=== PATIENT | female | born 1960 ===

== ENCOUNTER 2017-08-06 07:26 | Day surgery (SDC) | payer BC, OTHER ==
[2017-08-02 18:59] VITALS: BMI 25.0
--- NOTE | 2017-08-06 09:08 | HP ---
History & Physical Update - History Currently as noted:: Uterine polyp - Assessment Currently as noted:: 56yo female with uterine polyp - Plan Plan: No Change Currently as noted:: Hysteroscopy, polypectomy, D&C.
[2017-08-06] MEDS ORDERED: MIDAZOLAM HCL 2 MG/2 ML SINGLE DOSE VIAL ONE (09:55)
[2017-08-06] MEDS ORDERED: LIDOCAINE HCL/PF 2% SDV 5ML VIAL ONE (09:59)
[2017-08-06] MEDS ORDERED: DEXAMETHASONE SOD PHOSPHATE 4 MG/1 ML VIAL ONE (09:59)
[2017-08-06] MEDS ORDERED: PROPOFOL 20 ML ONE (10:04)
[2017-08-06] MEDS ORDERED: oxyCODONE HCL 5 MG TABLET PO PRN (10:25)
[2017-08-06] MEDS ORDERED: ONDANSETRON 4 MG/2 ML VIAL IVPUSH PRN (10:25)
--- NOTE | 2017-08-06 11:32 | OP ---
Operative Note - Note: Operative Date: 08/06/17 Pre-Operative Diagnosis: Uterine polyps Operation: Hysteroscopy, Excision of polyps Findings: Multiple uterine polyps and a submucosal pedunculated myoma were noted. A Truclear device was used to remove 4-5 polyps. A Trueclear device could not excise the submucosal myoma. The cervix was dilated to accommodate size 27 Coates dilator. A polyp forceps were used to attempt to remove the protruding myoma. The forcept was introduced gently. However, once the forcep was removed it was noted that the removed specimen looked like fat. A perforation of the uterus was suspected. A hysteroscope was placed back inside the uterus and an entire uterine cavity was surveyed. Despite several surveys and re-introducing the hysteroscope into the uterus 4-5 times, no defect in the uterine cavity was noted. This was done in order to decide if an explorative laparoscopy/ laparotomy was needed. Since no defect was seen, the decision was made to terminate the surgery. The plan is to admit pt for observation, serial labs, possible CT scan, possible explorative surgery. Post-Operative Diagnosis: Other (Endometrial polyps, submicaosal fibroids) Surgeon: Russ Pascal Anesthesiologist/CUSTODIAL MAINTENANCE WORKER: Guillermo Abraham Anesthesia: General Specimens Removed: Uterine polyps, suspected ?? small fragment of fat Estimated Blood Loss (mls): 10 Drains, Volume Out (mls): 0 Blood Volume Replaced (mls): 0 Fluid Volume Replaced (mls): 800 (Hysteroscopy fluid deficit 2500 ml) Operative Report Dictated: Yes
[2017-08-06 12:24] LABS: HEMATOCRIT 39.8 % (32.4-45.2); HEMOGLOBIN 12.9 GM/dL (10.7-15.3); MCH 26.9 pg (25.7-33.7); MCHC 32.3 g/dl (32.0-36.0); MEAN CELL VOLUME 83.3 fl (80-96); MEAN PLT VOLUME 9.3 fl (7.5-11.1); PLATELET COUNT 340 K/MM3 (134-434); RBC 4.78 M/mm3 (3.60-5.2); RDW 13.4 % (11.6-15.6); WHITE BLOOD COUNT 5.3 K/mm3 (4.0-10.0)
[2017-08-06 12:55] LABS: ALBUMIN 3.5 g/dl (3.4-5.0); ANION GAP 10 (8-16); BILIRUBIN,TOTAL 0.3 mg/dL (0.2-1.0); BLOOD UREA NITROGEN 18 mg/dL (7-18); CALCIUM 8.2 mg/dL (8.5-10.1); CHLORIDE 106 mmol/L (98-107); CO2 25 mmol/L (21-32); CREATININE 0.7 mg/dL (0.55-1.02); GLUCOSE,RANDOM 80 mg/dL (74-106); POTASSIUM 4.2 mmol/L (3.5-5.1); SGOT/AST 10 U/L (15-37); SGPT/ALT 18 U/L (12-78); SODIUM 141 mmol/L (136-145); TOT PROT 6.9 g/dl (6.4-8.2)
[2017-08-06 12:56] LABS: ALK PHOS 88 U/L (45-117)
[2017-08-06 16:21] LABS: ALBUMIN 3.8 g/dl (3.4-5.0); ANION GAP 8 (8-16); BLOOD UREA NITROGEN 19 mg/dL (7-18); CALCIUM 8.4 mg/dL (8.5-10.1); CHLORIDE 108 mmol/L (98-107); CO2 25 mmol/L (21-32); CREATININE 0.7 mg/dL (0.55-1.02); GLUCOSE,RANDOM 90 mg/dL (74-106); SGOT/AST 11 U/L (15-37); SGPT/ALT 19 U/L (12-78); SODIUM 141 mmol/L (136-145)
[2017-08-06 16:24] LABS: ALK PHOS 93 U/L (45-117); BILIRUBIN,TOTAL 0.3 mg/dL (0.2-1.0); TOT PROT 7.4 g/dl (6.4-8.2)
[2017-08-06 16:27] LABS: BASO % 0.2 % (0-2.0); EOS % 0.1 % (0-4.5); HEMATOCRIT 36.8 % (32.4-45.2); LYMPH % 8.4 % (8-40); MCH 27.1 pg (25.7-33.7); MCHC 32.8 g/dl (32.0-36.0); MEAN CELL VOLUME 82.7 fl (80-96); MEAN PLT VOLUME 9.2 fl (7.5-11.1); MONO % 1.7 % (3.8-10.2); NEUT % 89.6 % (42.8-82.8); PLATELET COUNT 361 K/MM3 (134-434); RBC 4.45 M/mm3 (3.60-5.2); RDW 13.1 % (11.6-15.6); WHITE BLOOD COUNT 6.8 K/mm3 (4.0-10.0)
[2017-08-06] MEDS ORDERED: CEFAZOLIN 1 GM in DEXTROSE 5%-WATER - 50 ML IVPB SCH (18:15)
[2017-08-06] MEDS ORDERED: ceFAZolin SODIUM 1 GM VIAL ONE (18:57)
[2017-08-06] MEDS ORDERED: DEXTROSE 5%-WATER - 50 ML IVPB ONE (18:57)
[2017-08-06] MEDS: LACTATED RINGERS SOLUTION 1,000 ML IV SCH (19:01)
[2017-08-06] MEDS: CEFAZOLIN 1 GM in DEXTROSE 5%-WATER - 50 ML IVPB SCH (19:02)
--- NOTE | 2017-08-06 20:23 | PN ---
Progress Note (SOAP) - Subjective Chief Complaint: Pt w/o complaints. No pain, no nausea or vomiting. No fever or chills. She is hungry and wants to eat. History of Present Illness: s/p hysteroscopy, D&C with suspected perforation and admitted for observation. - Current Medications Current Medications: Active Medications Fentanyl (Sublimaze Injection -) 50 mcg IVPUSH [id number] PRN PRN Reason: PAIN-PACU ORDER X 4 DOSES ONLY Last Admin: 08/06/17 12:00 Dose: 50 mcg Lactated Ringer's (Lactated Ringers Solution) 1,000 mls @ 75 mls/hr IV ASDIR [facility] Last Admin: 08/06/17 19:01 Dose: 75 mls/hr Metronidazole (Flagyl 500mg Premixed Ivpb -) 500 mg in 100 mls @ 100 mls/hr IVPB Q6H-IV AISHA Stop: 08/07/17 18:14 Last Admin: 08/06/17 19:42 Dose: 100 mls/hr Cefazolin Sodium 1 gm/ (Dextrose) 50 mls @ 100 mls/hr IVPB Q8H-IV [facility] Stop: 08/07/17 18:14 Last Admin: 08/06/17 19:02 Dose: 100 mls/hr Ondansetron HCl (Zofran Injection) 4 mg IVPUSH Q6H PRN PRN Reason: NAUSEA AND/OR VOMITING Oxycodone HCl (Roxicodone -) 5 mg PO Q4H PRN PRN Reason: PAIN LEVEL 1-5 - Objective Vital Signs: Vital Signs Temperature 98.3 F 08/06/17 18:35 Pulse Rate 73 08/06/17 18:35 Respiratory Rate 20 08/06/17 18:35 Blood Pressure 156/89 08/06/17 18:35 O2 Sat by Pulse Oximetry (%) 97 08/06/17 18:35 Constitutional: Yes: Well Nourished, No Distress, Calm Eyes: Yes: WNL, Conjunctiva Clear, EOM Intact HENT: Yes: WNL, Atraumatic, Normocephalic Neck: Yes: WNL, Supple, Trachea Midline Cardiovascular: Yes: WNL, Regular Rate and Rhythm Respiratory: Yes: WNL, Regular, CTA Bilaterally Gastrointestinal: Yes: WNL, Normal Bowel Sounds, Soft, Other (non-tender, no rebound, no guarding/rigidity) Genitourinary: Yes: WNL (no vag bleeding) Musculoskeletal: Yes: WNL Extremities: Yes: WNL Peripheral Pulses WNL: Yes Edema: No Integumentary: Yes: WNL Neurological: Yes: WNL, Alert, Oriented ...Motor Strength: Yes: WNL Psychiatric: Yes: WNL, Alert, Oriented Labs Lab Results: CBC, BMP 08/06/17 14:20 08/06/17 14:20 Assessment/Plan 56yo female s/p hysteroscopy, D&C, complicated by suspected uterine perforation. The pt is doing well, stable. There are no s/sx's of acute abdomen or sepsis. Plan to continue to monitor and labs. Continue NPO for now.
[2017-08-07] MEDS ORDERED: ceFAZolin SODIUM 1 GM VIAL ONE ×2 (01:43→09:30)
[2017-08-07] MEDS ORDERED: PT OWN MED DRAWER 7, Y5N ONE (01:43)
[2017-08-07] MEDS ORDERED: DEXTROSE 5%-WATER - 50 ML IVPB ONE ×2 (01:45→09:30)
[2017-08-07] MEDS: CEFAZOLIN 1 GM in DEXTROSE 5%-WATER - 50 ML IVPB SCH ×2 (01:48→09:36)
[2017-08-07 07:44] LABS: BASO % 0.4 % (0-2.0); EOS % 0.6 % (0-4.5); HEMATOCRIT 35.1 % (32.4-45.2); HEMOGLOBIN 11.8 GM/dL (10.7-15.3); LYMPH % 25.8 % (8-40); MCH 27.5 pg (25.7-33.7); MCHC 33.6 g/dl (32.0-36.0); MEAN PLT VOLUME 8.9 fl (7.5-11.1); MONO % 8.5 % (3.8-10.2); NEUT % 64.7 % (42.8-82.8); PLATELET COUNT 340 K/MM3 (134-434); RBC 4.29 M/mm3 (3.60-5.2); RDW 13.2 % (11.6-15.6); WHITE BLOOD COUNT 6.6 K/mm3 (4.0-10.0)
[2017-08-07 08:18] LABS: ALBUMIN 3.4 g/dl (3.4-5.0); ANION GAP 7 (8-16); BLOOD UREA NITROGEN 16 mg/dL (7-18); CALCIUM 8.3 mg/dL (8.5-10.1); CHLORIDE 108 mmol/L (98-107); CO2 28 mmol/L (21-32); GLUCOSE,RANDOM 81 mg/dL (74-106); POTASSIUM 4.3 mmol/L (3.5-5.1); SODIUM 143 mmol/L (136-145)
[2017-08-07 08:23] LABS: ALK PHOS 85 U/L (45-117); BILIRUBIN,TOTAL 0.6 mg/dL (0.2-1.0); CREATININE 0.9 mg/dL (0.55-1.02); SGOT/AST 11 U/L (15-37); SGPT/ALT 15 U/L (12-78); TOT PROT 6.8 g/dl (6.4-8.2)
[2017-08-07] MEDS: LACTATED RINGERS SOLUTION 1,000 ML IV SCH (09:37)
--- NOTE | 2017-08-07 09:38 | PN ---
Progress Note (SOAP) - Subjective Chief Complaint: Pt w/o complaints. No pain, no nausea or vomiting, no anorexia. No fever or chills. She is looking forward to being discharged. History of Present Illness: POD #1, s/p hysteroscopy, D&C with suspected perforation and admitted for observation. - Current Medications Current Medications: Active Medications Fentanyl (Sublimaze Injection -) 50 mcg IVPUSH [id number] PRN PRN Reason: PAIN-PACU ORDER X 4 DOSES ONLY Last Admin: 08/06/17 12:00 Dose: 50 mcg Lactated Ringer's (Lactated Ringers Solution) 1,000 mls @ 75 mls/hr IV ASDIR AISHA Last Admin: 08/06/17 19:01 Dose: 75 mls/hr Metronidazole (Flagyl 500mg Premixed Ivpb -) 500 mg in 100 mls @ 100 mls/hr IVPB Q6H-IV AISHA Stop: 08/07/17 18:14 Last Admin: 08/07/17 02:01 Dose: 100 mls/hr Cefazolin Sodium 1 gm/ (Dextrose) 50 mls @ 100 mls/hr IVPB Q8H-IV AISHA Stop: 08/07/17 18:14 Last Admin: 08/07/17 01:48 Dose: 100 mls/hr Ondansetron HCl (Zofran Injection) 4 mg IVPUSH Q6H PRN PRN Reason: NAUSEA AND/OR VOMITING Oxycodone HCl (Roxicodone -) 5 mg PO Q4H PRN PRN Reason: PAIN LEVEL 1-5 - Objective Vital Signs: Vital Signs Temperature 98.4 F 08/07/17 05:35 Pulse Rate 71 08/07/17 05:35 Respiratory Rate 20 08/07/17 05:35 Blood Pressure 143/90 08/07/17 05:35 O2 Sat by Pulse Oximetry (%) 97 08/06/17 18:35 Constitutional: Yes: Well Nourished, No Distress, Calm Eyes: Yes: WNL, Conjunctiva Clear Neck: Yes: WNL, Supple, Trachea Midline Cardiovascular: Yes: WNL, Regular Rate and Rhythm Respiratory: Yes: WNL, Regular, CTA Bilaterally Gastrointestinal: Yes: WNL, Normal Bowel Sounds ...Rectal Exam: Yes: Deferred Genitourinary: Yes: Vaginal Bleeding (mild) Musculoskeletal: Yes: WNL Extremities: Yes: WNL Peripheral Pulses WNL: Yes Edema: No Integumentary: Yes: WNL Neurological: Yes: WNL, Alert, Oriented ...Motor Strength: Yes: WNL Psychiatric: Yes: WNL, Alert, Oriented Labs Lab Results: CBC, BMP 08/07/17 06:32 08/07/17 06:32 Assessment/Plan 56yo female POD#1 s/p hysteroscopy, D&C, complicated by suspected uterine perforation. The pt is doing clinically well, stable. There are no s/sx's of acute abdomen or sepsis. The labs are normal today. Plan to obtain Ct of abdom and pelvis. Continue NPO for now.
--- NOTE | 2017-08-07 10:10 | PN ---
Progress Note (short form) - Note Progress Note: Post op day#1.S/P Hysteroscopic polypectomy withD&C under [place] uneventful.Patient stable.No any anesthesia related problem.Patient DC from the anesthesia care.
--- NOTE | 2017-08-07 14:04 | PN ---
Progress Note (short form) - Note Progress Note: I spoke to the Radiologist and we reviewed CT scan findings. There is no evidence of bowel perforation. Since the pt is clinically well, plan to change to regular diet and d/c home if she remain stable. F/u is advised for next Sunday in-office at 3:15pm
[2017-08-07 14:09] VITALS: BP 151/87; PULSE 68; TEMP 98.9
--- NOTE | 2017-08-08 09:15 | PATH ---
Surgical Pathology Report Patient Name: PREMA CARPENTER Med. Rec. #: [id number] /Age/Gender: 1960 (Age: 56) / F Account: [id number] Location: AMBULATORY SURG Taken: 08/06/2017 Received: 08/06/2017 Reported: 08/08/2017 Physicians: Russ Pascal M.D. Specimen(s) Received ENDOMETRIAL POLYP Clinical History Uterine polyp Final Diagnosis ENDOMETRIAL POLYPS: FRAGMENTS OF ENDOMETRIAL POLYP. SEPARATE SCANTY FRAGMENTS OF SMOOTH MUSCLE. SEPARATE FRAGMENTS OF MATURE ADIPOSE TISSUE. Note: This case was discussed with Dr. Pascal on August 08, 2017. Electronically Signed Mamta Jorgensen M.D. Gross Description Received in formalin labeled "endometrial polyps," is a 3.4 x 2.2 x 0.2 cm aggregate of alberto-yellow, irregular to polypoid portions of soft tissue. Separately received within the same container is a 2.0 x 1.5 x 0.2 cm aggregate of white tissue fragments. The specimen is entirely submitted in 3 cassettes. /08/06/2017 saudi/08/06/2017
== END 2017-08-07 16:47 | disposition home or self-care (01) ==
LOC: JASUSAT 07:26 → JASU-SURG 07:26 → J6S 18:15 → JASUSAT 08-07 16:47
PROVIDERS: ATTEND Obstetrics & Gynecology
PROC: 0UB98ZX Excision of Uterus, Via Natural or Artificial Opening Endoscopic, Diagnostic (ICD-10-PCS; principal; 2017-08-06 09:00)
DX: N84.0 Polyp of corpus uteri (principal); D25.0 Submucous leiomyoma of uterus
CPT/HCPCS: 36415; 74178-TC; 80053; 84702; 85025; 85027; 86850; 86900; 86901; 88305-TC; 94760